=== PATIENT | male | born 1950 | race Caucasian/White ===

== ENCOUNTER 2025-08-22 09:12 | Outpatient (CLI) | payer MEDICARE, MEDICAID ==
--- NOTE | 2025-08-22 12:09 | RADIOLOGY REPORT ---
CLINICAL INFORMATION: PAIN IN LEFT ARM. TECHNIQUE: Multisequence multiplanar MRI images of the left shoulder were obtained without contrast. COMPARISON: None FINDINGS: Acromioclavicular joint: There is [id number] acromioclavicular hypertrophy and [id number] edema. There is type 1 acromion. Small amount of fluid in the subacromial / subdeltoid bursa. Rotator cuff tendons: Mild tendinosis of the distal supraspinatus and infraspinatus tendons. Partial-thickness bursal surface tear involving the anterior fibers of the supraspinatus tendon near the insertion measures up to 0.7 cm in AP dimension and approximately 0.6 cm in transverse dimension. Mild te ndinosis of the distal subscapularis tendon without visualized tear. Teres minor tendon is intact. Biceps tendon: There is mild tendinosis of the proximal long head biceps tendon. Minimal intrasubstance signal of the proximal long head biceps tendon just proximal to the level of the bicipital groove, possible small, thin interstitial tear. Labrum: Mild fraying of the superior labrum. Bones: No fracture or focal marrow contusion. Muscles: Normal muscle bulk. No atrophy. Other: No other significant findings. IMPRESSION: 1. Rotator cuff tendinosis with partial-thickness bursal surface tear involving the anterior fibers of the supraspinatus tendon. 2. [id number] acromioclavicular hypertrophy with mild subacromial/subdeltoid bursitis. 3. Tendinosis of the proximal long head biceps tendon with minimal intrasubstance signal just proximal to the level of the bicipital groove, possible small thin interstitial tear. 4. Mild fraying of the superior labrum.
== END 2025-08-22 23:59 | disposition home or self-care (01) ==
LOC: MRI02 09:12
PROVIDERS: ATTEND Student in an Organized Health Care Education/Training Program
DX: S43.432A Superior glenoid labrum lesion of left shoulder, initial encounter (principal); M79.602 Pain in left arm; M89.312 Hypertrophy of bone, left shoulder; M75.22 Bicipital tendinitis, left shoulder; M75.121 Complete rotator cuff tear or rupture of right shoulder, not specified as traumatic; M75.52 Bursitis of left shoulder; X58.XXXA Exposure to other specified factors, initial encounter; Y92.89 Other specified places as the place of occurrence of the external cause; Y99.9 Unspecified external cause status; Y93.89 Activity, other specified
CPT/HCPCS: 73221